=== PATIENT | male | born 2000 | race Hispanic/Latino ===

== ENCOUNTER 2019-09-11 16:05 | Emergency (ER) | payer OTHER ==
[2019-09-11] MEDS ORDERED: LIDOCAINE 1% MPF 5 ML VIAL ONE ×2 (16:49→17:11)
[2019-09-11] MEDS ORDERED: LIDOCAINE 1% MPF 30 ML VIAL ONE (16:50)
[2019-09-11] MEDS ORDERED: TETANUS & DIPHTHERIA TOX,ADULT 0.5 ML VIAL ONE (17:11)
--- NOTE | 2019-09-11 17:18 | ER ---
Nurse's Notes [facility] Name: Raman Kent Age: 18 yrs Sex: Male : 2000 Arrival Date: 09/11/2019 Time: 16:07 Bed 20 Private MD: Diagnosis: Laceration without foreign body of lower leg Presentation: 09/10 16:15 Chief complaint: Parent and/or Guardian states: He jumped off the immobile truck, he ca1 scraped and cut his L knee. He did not hid his head or sustain any other injuries. Cleaned it with Peroxide and Neosporin applied. Motrin given [employer]. Lac noted on L knee. Coronavirus screen: Proceed with normal triage. Patient denies a cough. Patient denies shortness of breath or difficulty breathing. Patient denies measured and/or subjective temperature greater than 100.4F prior to today's visit. Patient denies travel on a cruise ship or to a country the [facility] currently lists as an affected area. Patient denies contact with known and/or suspected case of COVID-19. Ebola Screen: Patient negative for fever greater than or equal to 101.5 degrees Fahrenheit, and additional compatible Ebola Virus Disease symptoms Patient denies exposure to infectious person. Patient denies travel to an Ebola-affected area in the 21 days before illness onset. No symptoms or risks identified at this time. Complicating Factors: There are no complicating factors for this patient. Initial Sepsis Screen: Does the patient meet any 2 criteria? No. Patient's initial sepsis screen is negative. Does the patient have a suspected source of infection? No. Patient's initial sepsis screen is negative. Risk Assessment: Do you want to hurt yourself or someone else? Patient reports no desire to harm self or others. Onset of symptoms was September 11, 2019. 16:15 Method Of Arrival: Ambulatory ca1 16:15 Acuity: SKYLAR 4 ca1 Triage Assessment: 16:18 Injury Description: Laceration sustained to left knee is clean, not bleeding, was ca1 sustained less than 30 minutes ago. is bleeding a small amount. Historical: - Allergies: 16:18 No Known Allergies; ca1 - Home Meds: 16:18 None [Active]; ca1 - PMHx: 16:18 Fragile X Syndrome; ca1 - PSHx: 16:18 None; ca1 - Immunization history:: Adult Immunizations up to date. - Social history:: Smoking status: Patient denies any tobacco usage or history of. Screenin:16 Abuse screen: Denies threats or abuse. Denies injuries from another. Nutritional ls4 screening: No deficits noted. Tuberculosis screening: No symptoms or risk factors identified. Fall Risk None identified. Assessment: 16:15 General: Appears in no apparent distress. comfortable, Behavior is calm, cooperative. ls4 Pain: Complains of pain in left knee Pain currently is 5 out of 10 on a pain scale. Neuro: No deficits noted. Musculoskeletal: Circulation, motion, and sensation intact. Capillary refill < 3 seconds, Range of motion: intact in all extremities, Swelling absent. Injury Description: Laceration sustained to left knee is jagged, 7.6 to 20 cm long, mild controlled bleeding. Vital Signs: 16:15 BP 132 / 85; Pulse 95; Resp 18 S; Temp 97.1(TE); Pulse Ox 99% on R/A; Weight 117.93 kg ca1 (R); Height 6 ft. 1 in. (185.42 cm) (R); 17:42 BP 101 / 62; Pulse 88; Resp 14; Temp 97.4(O); Pulse Ox 100% on R/A; Pain 3/10; ls4 16:15 Body Mass Index 34.30 (117.93 kg, 185.42 cm) ca1 ED Course: 16:07 Patient arrived in ED. ag5 16:14 Wound care: to laceration was cleaned with Hibiclens. ls4 16:15 Rhoda Herrera FNP-C is [facility]. kb 16:15 Ariel Mclain MD is Attending Physician. kb 16:16 Patient has correct armband on for positive identification. Bed in low position. Call ls4 light in reach. Side rails up X 1. Pulse ox on. NIBP on. Warm blanket given. Verbal reassurance given. 16:17 Triage completed. ca1 16:19 Arm band placed on right wrist. ca1 16:30 Assist provider with laceration repair on left knee that was between 7.6 to 12.5 cm ls4 using sutures. Set up tray. Performed by Rhoda SHAFFER Dressed with band aid, Patient tolerated well. Patient did not have IV access during this emergency room visit. 16:48 Aki, Altagracia, RN is Primary Nurse. 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 Exp: ls4 06/24/2021. Lot #: [id number]. } Route: IM; Site: left deltoid; 17:40 Follow up: Response: No adverse reaction ls4 Outcome: 17:18 Discharge ordered by MD. groves 17:48 Discharged to home ambulatory. ls4 17:48 Condition: good ls4 17:48 Discharge instructions given to patient, family, Instructed on discharge instructions, follow up and referral plans. medication usage, safety practices, wound care, Demonstrated understanding of instructions, follow-up care, medications, wound care. 17:49 Patient left the ED. ls4 Signatures: Rhoda Herrera, TRAFFIC RATE CLERK-C TRAFFIC RATE CLERK-Altagracia Marie RN RN ls4 Mary Grace Rg RN RN [facility] Claudio Cody [facility]
--- NOTE | 2019-09-11 17:18 | EDPHYS ---
Physician Documentation [facility] Name: Raman Kent Age: 18 yrs Sex: Male : 2000 Arrival Date: 09/11/2019 Time: 16:07 Bed 20 Private MD: ED Physician Ariel Mclain HPI: 09/10 17:16 This 18 yrs old Male presents to ER via Ambulatory with complaints of Laceration To Leg.kb 17:16 The patient has a laceration related to: jumping down from tailgate on truck and kb scraped knee on metal part of the tailgate causing laceration occurred at home, outdoors, and there are no complicating factors. The injury was accidental. The laceration(s) is(are) located on the left knee. Onset: The symptoms/episode began/occurred just prior to arrival. Associated signs and symptoms: The patient has no apparent associated signs or symptoms. The patient has not experienced similar symptoms in the past. The patient has not recently seen a physician. Historical: - Allergies: 16:18 No Known Allergies; ca1 - Home Meds: 16:18 None [Active]; ca1 - PMHx: 16:18 Fragile X Syndrome; ca1 - PSHx: 16:18 None; ca1 - Immunization history:: Adult Immunizations up to date. - Social history:: Smoking status: Patient denies any tobacco usage or history of. ROS: 17:16 Constitutional: Negative for fever, chills, and weight loss, Cardiovascular: Negative kb for chest pain, palpitations, and edema, Respiratory: Negative for shortness of breath, cough, wheezing, and pleuritic chest pain, Abdomen/GI: Negative for abdominal pain, nausea, vomiting, diarrhea, and constipation, Back: Negative for injury and pain, MS/Extremity: Negative for injury and deformity, Neuro: Negative for headache, weakness, numbness, tingling, and seizure. 17:16 Skin: Positive for laceration(s), of the left knee. Exam: 17:16 Constitutional: This is a well developed, well nourished patient who is awake, alert, kb and in no acute distress. Head/Face: Normocephalic, atraumatic. Chest/axilla: Normal chest wall appearance and motion. Nontender with no deformity. No lesions are appreciated. Cardiovascular: Regular rate and rhythm with a normal S1 and S2. No gallops, murmurs, or rubs. Normal PMI, no JVD. No pulse deficits. Respiratory: Lungs have equal breath sounds bilaterally, clear to auscultation and percussion. No rales, rhonchi or wheezes noted. No increased work of breathing, no retractions or nasal flaring. Abdomen/GI: Soft, non-tender, with normal bowel sounds. No distension or tympany. No guarding or rebound. No evidence of tenderness throughout. MS/ Extremity: Pulses equal, no cyanosis. Neurovascular intact. Full, normal range of motion. Neuro: Awake and alert, GCS 15, oriented to person, place, time, and situation. Cranial nerves II-XII grossly intact. Motor strength 5/5 in all extremities. Sensory grossly intact. Cerebellar exam normal. Normal gait. 17:16 Skin: injury, laceration(s), the wound is approximately 7 cm(s), of the just below left knee, that can be described as clean, no foreign body, irregular, without bleeding. Vital Signs: 16:15 BP 132 / 85; Pulse 95; Resp 18 S; Temp 97.1(TE); Pulse Ox 99% on R/A; Weight 117.93 kg ca1 (R); Height 6 ft. 1 in. (185.42 cm) (R); 17:42 BP 101 / 62; Pulse 88; Resp 14; Temp 97.4(O); Pulse Ox 100% on R/A; Pain 3/10; ls4 16:15 Body Mass Index 34.30 (117.93 kg, 185.42 cm) ca1 Laceration: 17:13 Wound Repair of 7cm ( 2.8in ) subcutaneous laceration to just below left knee. kb Irregularly shaped.. Distal neuro/vascular/tendon intact. Anesthesia: Wound infiltrated with 9 mls of 1% lidocaine. Wound prep: Extensive cleansing with hibiclenz by me, Wound irrigation with saline by me. Skin closed with 12 4-0 Prolene using simple sutures and sterile technique. Patient tolerated well. MDM: 16:15 Patient medically screened. kb 17:13 Data reviewed: vital signs, nurses notes. Data interpreted: Pulse oximetry: on room air kb is 99 %. Interpretation: normal. Counseling: I had a detailed discussion with the patient and/or guardian regarding: the historical points, exam findings, and any diagnostic results supporting the discharge/admit diagnosis, the need for outpatient follow up, a family practitioner, to return to the emergency department if symptoms worsen or persist or if there are any questions or concerns that arise at home. 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 Exp: ls4 06/24/2021. Lot #: [id number]. } Route: IM; Site: left deltoid; 17:40 Follow up: Response: No adverse reaction ls4 Disposition: 09/11 07:20 Co-signature as Attending Physician, Ariel Mclain MD. rn Disposition: 09/11/19 17:18 Discharged to Home. Impression: Laceration without foreign body of lower leg. - Condition is Stable. - Discharge Instructions: Laceration Care, Adult, [id number]. - Medication Reconciliation Form, Thank You Letter, Antibiotic Education, Prescription Opioid Use form. - Follow up: Emergency Department; When: As needed; Reason: Worsening of condition. Follow up: Private Physician; When: 2 - 3 days; Reason: Recheck today's complaints, Continuance of care, Re-evaluation by your physician. Signatures: Rhoda Herrera, [employer]-C [employer]-Ckb Ariel Mclain MD MD rn Stewart, Lisa, RN RN ls4 Mary Grace Rg RN RN ca1 Corrections: (The following items were deleted from the chart) 09/10 17:49 17:18 09/11/2019 17:18 Discharged to Home. Impression: Laceration without foreign body ls4 of lower leg. Condition is Stable. Forms are Medication Reconciliation Form, Thank You Letter, Antibiotic Education, Prescription Opioid Use. Follow up: Emergency Department; When: As needed; Reason: Worsening of condition. Follow up: Private Physician; When: 2 - 3 days; Reason: Recheck today's complaints, Continuance of care, Re-evaluation by your physician. kb
[2019-09-11 17:55] VITALS: BP 101/62; TEMP 97.4; O2SAT 100
== END 2019-09-11 17:49 | disposition home or self-care (01) ==
LOC: ER 16:05
PROC: 0JQP0ZZ Repair Left Lower Leg Subcutaneous Tissue and Fascia, Open Approach (ICD-10-PCS; principal; 2019-09-11)
DX: S81.012A Laceration without foreign body, left knee, initial encounter (principal); W26.8XXA Contact with other sharp object(s), not elsewhere classified, initial encounter; Y93.89 Activity, other specified; Y92.009 Unspecified place in unspecified non-institutional (private) residence as the place of occurrence of the external cause; Z23 Encounter for immunization
CPT/HCPCS: 90471; 90714; 99284